=== PATIENT | male | born 1995 | race African-American/Black ===

== ENCOUNTER 2016-11-23 19:25 | Day surgery (SDC) | payer BC ==
[~2016-11-23] VITALS: Ht 182.9 cm; Wt 104.5 kg
[~2016-11-23 19:25] MED LIST: BACTROBAN 22GM22 GM NAS; LORTAB 5/500 501 TAB PO; NO HOME MEDICATIONS
[2016-11-23 20:21] LABS: BASO % 0.2 % (0.0-2.0); EOS # 0.2 (0.0-0.7); EOS % 2.4 % (0-4.0); GRAN # 4.7 (1.4-6.5); GRAN % 57.1 % (42.2-75.2); HEMATOCRIT 38.8 % (42.0-52.0); LYMPH # 2.6 (1.2-3.4); MEAN CELL VOLUME 89 fl (80.0-100.0); MEAN CORPUSCULAR HEMOGLOBIN 32 pg (27.0-31.0); MEAN CORPUSCULAR HGB CONC 36 g/dl (33.0-37.0); MEAN PLATELET VOLUME 10.8 fl (7.4-10.4); MONO # 0.8 (0.1-0.6); MONO % 9.1 % (1.7-9.3); PLATELET COUNT 198 K/mm3 (130-400); RED BLOOD COUNT 4.38 M/mm3 (4.20-5.60); REDCELL DISTRIBUTION WIDTH-CV 11.9 % (11.5-14.5); WHITE BLOOD COUNT 8.3 K/mm3 (4.8-10.8)
[2016-11-23 20:49] LABS: ADJUSTED CALCIUM 9.6 mg/dL (8.4-10.2); ALBUMIN 3.7 gm/dL (3.5-5.0); BILIRUBIN,TOTAL 0.7 mg/dL (0.0-1.0); C-REACTIVE PROTEIN 6.8 mg/dL (0.0-0.9); CALCIUM 9.4 mg/dL (8.4-10.2); CREATININE, serum 1.13 mg/dL (0.66-1.25); POTASSIUM 3.9 mmol/L (3.4-5.0); TOTAL PROTEIN 7.1 gm/dL (6.4-8.2)
[2016-11-23 23:45] VITALS: BP 121/82; PULSE 82; TEMP 97.5
[2016-11-24] VITALS (8 sets, daily range): BP systolic 115–145; BP diastolic 40–80; PULSE 49–94; TEMP 97.2–97.7
[2016-11-24] MEDS ORDERED: MULTI VITAMINS1 TAB PO (00:06)
== END 2016-11-24 10:40 | disposition home or self-care (01) ==
LOC: COL.ER 19:25 → SDCO 21:37 → SURG 21:37 → COL.ER 21:37 → MEDICAL 21:37 → SURG 23:30 → MEDICAL 23:30 → SDCO 11-24 10:40 → MEDICAL 11-24 10:40
PROVIDERS: Nurse Practitioner
DX: K35.3 Acute appendicitis with localized peritonitis (principal)
CPT/HCPCS: OP; G0378; J0694; J1100; J1170; J1885; J2270; J2405; J2704; J2710; J3010; J7030; Q9967